=== PATIENT | male | born 1970 | race Caucasian/White ===

== ENCOUNTER 2022-10-03 07:10 | Day surgery (SDC) | payer BC ==
[~2022-10-03] VITALS: Ht 180.3 cm; Wt 96.0 kg
[2022-10-03 08:39] VITALS: BP 160/109; PULSE 83; TEMP 97.9
[2022-10-03] MEDS ORDERED: PRILOSEC 20MG20 MG PO (08:44)
[2022-10-03] MEDS ORDERED: SELSUN 120 ML120 ML TOP (08:45)
[2022-10-03] MEDS ORDERED: DIFLUCAN150 MG PO (08:45)
[2022-10-03 09:50] VITALS: BP 109/78; PULSE 60
--- NOTE | 2022-10-03 10:25 | NUR ---
0956 RETURNS TO ROOM 1 PER CART. AWAKE, ALERT. RESP UNLABORED. AMBULATES TO RECLINER WITH STAND BY ASSIST. DENIES NAUSEA OR ABD PAIN. VITAL SIGNS OBTAINED. 1005 TOLERATES PO JUICE AND MUFFIN WITHOUT NAUSEA 1006 DR. MOROCHO HERE TO VISIT WITH PATIENT. 1010 DISCHARGE INSTRUCTIONS REVIEWED. PATIENT VERBALIZES UNDERSTANDING. COPY PROVIDED IN DISCHARGE FOLDER. 1020 DRESSES SELF
== END 2022-10-03 10:28 | disposition home or self-care (01) ==
LOC: SDCO 07:10
DX: Z12.11 Encounter for screening for malignant neoplasm of colon (principal); K62.1 Rectal polyp; K57.30 Diverticulosis of large intestine without perforation or abscess without bleeding; R14.2 Eructation; Z79.899 Other long term (current) drug therapy
CPT/HCPCS: J2704; J7120